=== PATIENT | male | born 1970 | race Caucasian/White ===

== ENCOUNTER → 2019-02-06 | Outpatient (CLI) | payer OTHER ==
[~2019-02-06] MED LIST: ALBU18HF IH; BUDE180A INH; ENAL20TA PO
[2019-02-06 15:44] LABS: ALANINE AMINOTRANSFERASE 46 U/L (12-78); ALBUMIN 3.9 g/dL (3.4-5.0); ANION GAP 7 mmol/L (5-15); CALCIUM 8.9 mg/dL (8.5-10.1); CHLORIDE 105 mmol/L (98-107)
[2019-02-06 15:47] LABS: ALKALINE PHOSPHATASE 56 U/L (45-117); BILIRUBIN,TOTAL 0.5 mg/dL (0.2-1.0); CREATININE 1.07 mg/dL (0.7-1.3); TOTAL PROTEIN 7.8 g/dL (6.4-8.2)
== END | disposition home or self-care (01) ==
LOC: STAR 14:47
PROVIDERS: ATTEND Orthopaedic Surgery
DX: S83.242A Other tear of medial meniscus, current injury, left knee, initial encounter (principal); S83.512A Sprain of anterior cruciate ligament of left knee, initial encounter; S83.412A Sprain of medial collateral ligament of left knee, initial encounter; X58.XXXA Exposure to other specified factors, initial encounter; Y93.89 Activity, other specified; Y92.89 Other specified places as the place of occurrence of the external cause; Y99.8 Other external cause status; F10.20 Alcohol dependence, uncomplicated
CPT/HCPCS: 36415; 80053

== ENCOUNTER 2019-02-10 13:16 | Day surgery (SDC) | payer OTHER ==
[~2019-02-10] VITALS: Ht 175.3 cm; Wt 152.9 kg
[~2019-02-10 13:16] MED LIST changes: +FENTANYL PF 100 MCG/2ML ONE; +MIDAZOLAM 1 MG/ML, 2ML ONE
[2019-02-10] MEDS ORDERED: ACETAMINOPHEN 500 MG TABLET PO ONE (13:30)
[2019-02-10] MEDS ORDERED: SCOPOLAMINE PATCH, 1.5MG PATCH.TD72 TD ONE ×2 (13:30→13:45)
[2019-02-10] MEDS ORDERED: GABAPENTIN 300 MG CAPSULE PO ONE (13:30)
[2019-02-10 13:37] VITALS: BP 138/93
[2019-02-10] MEDS ORDERED: LACTATED RINGERS 1,000 ML IV SCH (14:00)
[2019-02-10] MEDS ORDERED: ONDANSETRON 2MG/ML, 2ML ONE (14:15)
[2019-02-10] MEDS ORDERED: SUCCINYLCHOLINE 20 MG/ML, 10ML ONE (14:15)
[2019-02-10] MEDS ORDERED: PROPOFOL 10 MG/ML, 20ML ONE (14:15)
[2019-02-10] MEDS ORDERED: DEXAMETHASONE 4 MG/ML, 1ML ONE (14:15)
[2019-02-10] MEDS ORDERED: ROCURONIUM 10 MG/ML,10ML ONE (14:15)
[2019-02-10] MEDS ORDERED: ALBUTEROL SULFATE 2.5 MG/3 ML NPPB PRN (15:00)
[2019-02-10] MEDS ORDERED: PROMETHAZINE 25 MG/ML, 1ML IV PRN (15:00)
[2019-02-10] MEDS ORDERED: MEPERIDINE/PF 25MG/0.5ML IVPush PRN (15:00)
[2019-02-10] MEDS ORDERED: ONDANSETRON 2MG/ML, 2ML IVPush PRN ×2 (15:00→16:30)
[2019-02-10] MEDS ORDERED: FENTANYL PF 100 MCG/2ML IV PRN (15:00)
[2019-02-10] MEDS ORDERED: KETOROLAC 30 MG/1 ML IV PRN (15:00)
[2019-02-10] MEDS ORDERED: METOCLOPRAMIDE 5 MG/ML, 2ML IV PRN (15:00)
[2019-02-10] MEDS ORDERED: HYDROmorphone 1 MG/ML, 1ML INJ IV PRN (15:00)
[2019-02-10] MEDS ORDERED: OXYcodone 5 MG/5 ML ORAL.SOL UDC PO PRN ×2 (15:00→16:30)
[2019-02-10] MEDS ORDERED: LABETALOL 5MG/ML, 20ML IV PRN (15:00)
[2019-02-10] MEDS ORDERED: LIDOCAINE 1%-EPI 1:100K, 30ML INFIL ONE (15:02)
[2019-02-10] MEDS ORDERED: hydrALAzine 20 MG/ML, 1ML ONE (16:02)
[2019-02-10] MEDS ORDERED: OXYcodone 5 MG/5 ML ORAL.SOL UDC ONE (16:02)
[2019-02-10] MEDS: hydrALAzine 20 MG/ML, 1ML IV PRN ×2 (16:05→16:30)
[2019-02-10] MEDS ORDERED: OXYcodone/APAP 5/325MG TABLET PO PRN (16:30)
[2019-02-10] MEDS ORDERED: ACETAMINOPHEN 325 MG TABLET PO PRN (16:30)
[2019-02-10] MEDS ORDERED: morphine SULFATE 10 MG/ML, 1ML IVPush PRN (16:30)
[2019-02-10] MEDS ORDERED: KETOROLAC 30 MG/1 ML IVPush SCH (16:30)
[2019-02-10] MEDS ORDERED: PROMETHAZINE 25 MG/ML, 1ML IM PRN (16:30)
== END 2019-02-10 18:30 | disposition home or self-care (01) ==
LOC: OUT 13:16
PROVIDERS: ATTEND Orthopaedic Surgery
DX: S83.512A Sprain of anterior cruciate ligament of left knee, initial encounter (principal); S83.232A Complex tear of medial meniscus, current injury, left knee, initial encounter; M65.862 Other synovitis and tenosynovitis, left lower leg; J45.909 Unspecified asthma, uncomplicated; G47.33 Obstructive sleep apnea (adult) (pediatric); I10 Essential (primary) hypertension; E66.01 Morbid (severe) obesity due to excess calories; Z68.42 Body mass index [BMI] 45.0-49.9, adult; Z79.899 Other long term (current) drug therapy; X58.XXXA Exposure to other specified factors, initial encounter; Y93.89 Activity, other specified; Y92.89 Other specified places as the place of occurrence of the external cause; Y99.8 Other external cause status
CPT/HCPCS: 29881; 29888; 64447; 73560; C1713; C1762; J0330; J0360; J1100; J2250; J2405; J2704; J3010; J3490; J7120; 76000